=== PATIENT | female | born 1970 | race Caucasian/White ===

== ENCOUNTER 2020-12-06 07:10 | Emergency (ER) | payer OTHER, SELFPAY ==
[2020-12-06 07:15] VITALS: BP 121/81; PULSE 88; RESP 16; TEMP 36.6; O2SAT 96
[2020-12-06 07:41] LABS: Add Urine Microscopic? YES; Appearance Urine Clear (Clear); Bilirubin Urine Negative (Negative); Blood Urine Negative (Negative); Color Urine Orange (Yellow); Glucose Urine UA Trace (Negative); Ketones Urine Negative (Negative); Leukocyte Esterase Ur Negative LEU/UL (Negative); Nitrate Urine Positive (Negative); Protein Urine Trace (Negative); Specific Grav Ur <= 1.005 (1.010-1.020)
[2020-12-06 07:46] LABS: RBC Urine 0-2 /hpf (0-2)
[2020-12-06 07:47] LABS: Bacteria Urine Trace /hpf; Squamous Epithelial Cell Urine Rare /hpf (Few); WBC Urine 0-3 /hpf (0-3)
--- NOTE | 2020-12-06 07:54 | ED.FEMALEGU ---
HPI - Female Genitourinary General Chief complaint: Urogenital-Female Stated complaint: possible uti Source: patient and RN notes reviewed Mode of arrival: ambulatory Limitations: no limitations History of Present Illness MD elicited complaint: dysuria and UTI Onset (ago): day(s) (1) Severity: mild Female Urogenital Radiation: Non-Radiating Consistency: intermittent Vaginal discharge: none Vaginal bleeding: none Urinary symptoms: Dysuria Exacerbating factors: urination Relieving factors: other (Azo and fluids feels better) Associated symptoms: denies other symptoms Treatment prior to arrival: none Related Data Home Medications Medication Instructions Recorded Confirmed atenolol 125 mg PO DAILY 12/06/20 12/06/20 levothyroxine 112 mcg PO DAILY 12/06/20 12/06/20 Allergies Allergy/AdvReac Type Severity Reaction Status Date / Time Penicillins Allergy Hives Verified 12/06/20 07:37 Review of Systems Review of Systems: All systems reviewed & are unremarkable except as noted in HPI and below PMFSH Past Medical History Medical History (Updated 12/06/20 @ 12:05 by Asif Ruiz MD) Hypertension Hypothyroidism Surgical History Surgical History (Updated 12/06/20 @ 12:05 by Asif Ruiz MD) H/O section History of bilateral tubal ligation History of tonsillectomy Social History Social History (Updated 12/06/20 @ 12:05 by Asif Ruiz MD) Alcohol intake: never Substance use: never Exam Const: General: healthy appearing and no acute distress Nutritional Appearance: well nourished and thin Orientation/consciousness: patient oriented x3 Other: Female nurse in room during examination. HENMT: Head: normal to inspection Ears: external ears normal Eyes: Conjunctivae: conjunctivae normal Pupils: Equal, round and reactive pupils present EOM: EOMs intact bilaterally Neck: Neck: normal visual inspection Resp: Effort & Inspection: normal respiratory effort Auscultation: clear to auscultation bilaterally Cardio: Rate: regular rate Rhythm: regular rhythm GI: GI Palp: Yes Soft to palpation and No Tenderness to palpation present (GI) Auscultation: normal bowel sounds Back/Spine/Pelvis: Cervical Spine: cervical ROM normal Thoracic/Lumbar Spine: thoraco-lumbar ROM normal Skin: General skin exam: normal color Rashes: no rashes Neuro: General: patient oriented x3, moves all extremities and no focal motor deficits Speech: normal speech Gait exam (Neuro): Normal gait present Extrem: General: normal to inspection and no clubbing, cyanosis or edema Psych: Mental Status: mental status grossly normal Affect: normal affect Attitude: cooperative Thought content: Yes Normal thought content present Course Vital Signs Vital signs: Vital Signs Temperature 36.6 C 12/06/20 07:15 Pulse Rate 88 12/06/20 07:15 Respiratory Rate 16 12/06/20 07:15 Blood Pressure 121/81 12/06/20 07:15 Pulse Oximetry 96 12/06/20 07:15 Temperature 36.6 C 12/06/20 07:15 Pulse Rate 88 12/06/20 07:15 Respiratory Rate 16 12/06/20 08:10 Blood Pressure 121/81 12/06/20 07:15 Pulse Oximetry 96 12/06/20 07:15 MDM - Female Genitourinary Lab Data Attestation: I reviewed the patient's lab results. Labs: Lab Results 12/06/20 Range/Units 07:37 Urine Color Grace A (Yellow) Urine Appearance Clear (Clear) Urine pH 6.0 (5.0-8.0) Ur Specific [place] <= 1.005 L (1.010-1.020) Urine Protein Trace H (Negative) Urine Glucose (UA) Trace H (Negative) Urine Ketones Negative (Negative) Ur Blood (Man) Negative (Negative) Urine Nitrate Positive H (Negative) Urine Bilirubin Negative (Negative) Urine Urobilinogen 2.0 H (0.2-1.0) mg/dL Leukocyte Esterase Rfl Negative (Negative) KAYLA/UL Urine RBC 0-2 (0-2) /hpf Urine WBC 0-3 (0-3) /hpf Ur Squamous Epith Cells Rare (Few) /hpf Urine Bacteria Trace (None) /hpf Discharge Plan
[2020-12-06 08:10] VITALS: RESP 16
== END 2020-12-06 08:10 | disposition home or self-care (01) ==
PROVIDERS: Emergency Provider Emergency Medicine
DX: R30.0 Dysuria (principal)
CPT/HCPCS: 81001; 87086; 99282; 99283